=== PATIENT | male | born 1940 | race Caucasian/White ===

== ENCOUNTER → 2017-01-11 | Outpatient (CLI) | payer MEDICARE, BC ==
[~2017-01-11] MED LIST: AMIO200T42 PO; ASPI-496 PO; ASPI-621 PO; CARB15DR5 EACHEYE; CARV6.2512 PO; CHOL20003 PO; CHOL4PAC3 PO; CITA20TA9 PO; CLIN-60 PO; COLC0.6T37 PO; DOCU-30 PO; FEBU40TA PO; FURO-92 PO; HYDR-3307 PO; LISI-466 PO; LUTE20TA PO; MULT-658 PO; PANT40TA5 PO; POTA20TA14 PO; RIVA20TA PO; ROSU10TA PO; SPIR25TA PO; WARF5TAB7 PO-COUM
== END | disposition home or self-care (01) ==
LOC: WOUND 08:00
PROVIDERS: ATTEND Internal Medicine Cardiovascular Disease
DX: I83.891 Varicose veins of right lower extremity with other complications (principal); I87.2 Venous insufficiency (chronic) (peripheral); I10 Essential (primary) hypertension; E78.5 Hyperlipidemia, unspecified; M10.9 Gout, unspecified; F32.9 Major depressive disorder, single episode, unspecified; Z87.891 Personal history of nicotine dependence; Z72.89 Other problems related to lifestyle
CPT/HCPCS: 36475

== ENCOUNTER → 2018-04-10 | Outpatient (CLI) | payer MEDICARE, BC ==
[~2018-04-10] MED LIST changes: +CHOL2000 PO; -CHOL20003 PO; -CLIN-60 PO; +CLIN150C14 PO; +DOCU-131 PO; -DOCU-30 PO; +WARF-36 PO-COUM; -WARF5TAB7 PO-COUM
== END | disposition home or self-care (01) ==
LOC: CFH 08:17
PROVIDERS: ATTEND Urology
DX: N28.1 Cyst of kidney, acquired (principal); N18.9 Chronic kidney disease, unspecified
CPT/HCPCS: 76770

== ENCOUNTER → 2018-08-15 | Outpatient (CLI) | payer MEDICARE, BC ==
[~2018-08-15] MED LIST changes: +GADOBUTROL 7.5 MMOL/7.5 ML PFS ONE
== END | disposition home or self-care (01) ==
LOC: CFH 09:43
PROVIDERS: ATTEND Specialist
DX: D36.10 Benign neoplasm of peripheral nerves and autonomic nervous system, unspecified (principal); G31.9 Degenerative disease of nervous system, unspecified; I63.9 Cerebral infarction, unspecified
CPT/HCPCS: 70553; 82565; A9585

== ENCOUNTER 2018-11-03 17:46 | Inpatient (IN) | payer MEDICARE, BC ==
[~2018-11-03] VITALS: Ht 177.8 cm; Wt 92.4 kg
[~2018-11-03 17:46] MED LIST changes: -ASPI-621 PO; +ASPI81TA45 PO; -GADOBUTROL 7.5 MMOL/7.5 ML PFS ONE
[2018-11-03] MEDS ORDERED: ASPIRIN 81 MG TABLET CHEW PO ONE ×3 (18:00→20:00)
[2018-11-03] MEDS ORDERED: ASPIRIN 81 MG TABLET CHEW ONE ×2 (18:06→19:48)
[2018-11-03 18:36] LABS: BASOPHILS # (AUTO) 0.04 x10^3/uL (0-0.1); BASOPHILS % (AUTO) 1 % (0-1); EOSINOPHILS # (AUTO) 0.32 x10^3/uL (0-0.4); EOSINOPHILS % (AUTO) 4 % (1-7); LYMPHOCYTES # (AUTO) 2.19 x10^3/uL (1-3.4); LYMPHOCYTES % (AUTO) 26 % (22-44); MD NO; MEAN CORPUSCULAR HEMOGLOBIN 32.2 pg (27.5-34.5); MEAN CORPUSCULAR HGB CONC 33.2 g/dL (33.2-36.2); MEAN CORPUSCULAR VOLUME 96.9 fL (81-97); MONOCYTES % (AUTO) 8 % (2-9); NEUTROPHILS # (AUTO) 5.29 x10^3/uL (1.8-6.8); NEUTROPHILS % (AUTO) 62 % (42-75); PLATELET COUNT 194 x10^3/uL (130-400); RED CELL DISTRIBUTION WIDTH 16.3 % (9.4-14.8)
--- NOTE | 2018-11-03 18:41 | NUR ---
PT. IS A & O X 4 WITH C/O 2 WEEK HX OF URI SYMPTOMS AND SOB WITH ACTIVITY. PT. HAS THE CP MONITOR IN PLACE. LABS WERE DRAWN AND SENT. PT.'S LUNGS ARE CTA. SIDERAILS ARE UP X [address] WITH THE CALL LIGHT IN PLACE. PT.'S IS AT THE BEDSIDE. PT. WAS MEDICATED ORDERED. VSS.
[2018-11-03 18:44] LABS: ALBUMIN 4.1 g/dL (3.4-5.0); ANION GAP 7 mmol/L (5-15); CALCIUM 8.5 mg/dL (8.5-10.1); CHLORIDE 111 mmol/L (98-107)
[2018-11-03 18:50] LABS: ALANINE AMINOTRANSFERASE 47 U/L (12-78); ALKALINE PHOSPHATASE 82 U/L (45-117); CREATININE 2.01 mg/dL (0.7-1.3); TOTAL PROTEIN 7.7 g/dL (6.4-8.2)
[2018-11-03 18:52] LABS: TROPONIN I 0.147 ng/mL (0.000-0.045)
[2018-11-03] MEDS ORDERED: FUROSEMIDE 40 MG/4 ML IV ONE (19:00)
[2018-11-03] MEDS ORDERED: POTA25TA4 PO (19:26)
[2018-11-03] MEDS ORDERED: TIOT18CA INH (19:29)
[2018-11-03] MEDS ORDERED: LISI-170 PO (19:29)
[2018-11-03] MEDS ORDERED: FUROSEMIDE 40 MG/4 ML ONE (19:48)
--- NOTE | 2018-11-03 19:56 | NUR ---
DR. GARNETT IS AT THE BEDSIDE DISCUSSING THE PLAN OF CARE. MEDS GIVEN ORDERED. PT. REMAINS MONITORED. VSS. CALL LIGHT IN PLACE, SR ARE UP X 2.
[2018-11-03] MEDS ORDERED: ACETAMINOPHEN 325 MG TABLET PO PRN (20:30)
[2018-11-03] MEDS ORDERED: hydrALAzine 20 MG/ML, 1ML IVPush PRN (20:30)
[2018-11-03] MEDS ORDERED: GUAIFENESIN/DM 200-20MG, 10ML UDC PO PRN (20:30)
[2018-11-03] MEDS ORDERED: ONDANSETRON ODT 4 MG PO PRN (20:30)
[2018-11-03] MEDS ORDERED: ONDANSETRON 2MG/ML, 2ML IVPush PRN (20:30)
--- NOTE | 2018-11-03 20:52 | NUR ---
PT. REPORT WAS CALLED TO [facility]. PT. IS READY FOR TRANSPORT.
[2018-11-03 21:23] VITALS: BP 129/78
[2018-11-03] MEDS: ENOXAPARIN 40 MG/0.4 ML SQ SCH (21:32)
[2018-11-03] MEDS: SODIUM CHLORIDE FLUSH 10ML SYR IVF SCH (21:32)
[2018-11-03] MEDS: CARVEDILOL 6.25 MG TABLET PO SCH (21:33)
[2018-11-03 23:30] LABS: TROPONIN I 0.137 ng/mL (0.000-0.045)
[2018-11-03 23:53] VITALS: BP 129/78
[2018-11-04 02:05] VITALS: BP 132/72
[2018-11-04 05:14] LABS: CALCIUM 8.7 mg/dL (8.5-10.1); CHLORIDE 113 mmol/L (98-107)
[2018-11-04 05:23] LABS: ANION GAP 8 mmol/L (5-15); CREATININE 1.85 mg/dL (0.7-1.3); TROPONIN I 0.128 ng/mL (0.000-0.045)
[2018-11-04] MEDS ORDERED: REGADENOSON 0.4 MG/5 ML SYRINGE ONE (08:35)
[2018-11-04 08:54] VITALS: BP 152/77
[2018-11-04] MEDS ORDERED: IPRATROPIUM 0.5 MG/2.5 ML INHA HHN SCH (09:00)
[2018-11-04] MEDS ORDERED: K-LYTE 25 MEQ TABLET.EFF PO SCH (09:00)
[2018-11-04] MEDS ORDERED: IPRATROPIUM 0.5 MG/2.5 ML INHA HHN PRN (11:30)
[2018-11-04] MEDS: CARVEDILOL 6.25 MG TABLET PO SCH ×2 (12:05→21:08)
[2018-11-04] MEDS: ATORVASTATIN 10 MG TABLET PO SCH (12:05)
[2018-11-04] MEDS: ASPIRIN 81 MG TABLET EC PO SCH (12:05)
[2018-11-04] MEDS: LISINOPRIL 20 MG TABLET PO SCH (12:05)
[2018-11-04] MEDS: CITALOPRAM 20 MG TABLET PO SCH (12:05)
[2018-11-04] MEDS: FUROSEMIDE 20 MG TABLET PO SCH (12:05)
[2018-11-04] MEDS: MULTIVITAMIN 1 TABLET PO SCH (12:06)
[2018-11-04] MEDS: CHOLECALCIFEROL 1,000 UNIT TABLET PO SCH (12:06)
[2018-11-04] MEDS: POTASSIUM CHLORIDE 10 MEQ TABLET.ER PO SCH (12:44)
[2018-11-04] MEDS: SODIUM CHLORIDE FLUSH 10ML SYR IVF SCH ×2 (12:44→21:09)
[2018-11-04 15:41] VITALS: BP 128/77
[2018-11-04 18:58] VITALS: BP 140/74
[2018-11-04 21:01] VITALS: BP 120/62
[2018-11-04] MEDS: ENOXAPARIN 40 MG/0.4 ML SQ SCH (21:09)
[2018-11-05 01:02] VITALS: BP 148/72
[2018-11-05 01:14] VITALS: BP 134/71
[2018-11-05 07:18] VITALS: BP 135/72
[2018-11-05] MEDS: LISINOPRIL 20 MG TABLET PO SCH (08:55)
[2018-11-05] MEDS: ASPIRIN 81 MG TABLET EC PO SCH (08:55)
[2018-11-05] MEDS: CHOLECALCIFEROL 1,000 UNIT TABLET PO SCH (08:56)
[2018-11-05] MEDS: POTASSIUM CHLORIDE 10 MEQ TABLET.ER PO SCH (08:56)
[2018-11-05] MEDS: FUROSEMIDE 20 MG TABLET PO SCH (08:56)
[2018-11-05] MEDS: MULTIVITAMIN 1 TABLET PO SCH (08:57)
[2018-11-05] MEDS: CITALOPRAM 20 MG TABLET PO SCH (08:57)
[2018-11-05] MEDS: ATORVASTATIN 10 MG TABLET PO SCH (08:57)
[2018-11-05] MEDS: CARVEDILOL 6.25 MG TABLET PO SCH ×2 (08:57→20:30)
[2018-11-05] MEDS: SODIUM CHLORIDE FLUSH 10ML SYR IVF SCH ×2 (08:58→20:30)
[2018-11-05 13:22] VITALS: BP 128/61
[2018-11-05] MEDS: FUROSEMIDE 40 MG/4 ML IV SCH (15:43)
[2018-11-05] MEDS: ENOXAPARIN 40 MG/0.4 ML SQ SCH (20:29)
[2018-11-05 20:34] VITALS: BP 119/57
[2018-11-06 00:51] VITALS: BP 121/78
[2018-11-06 05:45] LABS: ALBUMIN 3.6 g/dL (3.4-5.0); ANION GAP 8 mmol/L (5-15); CHLORIDE 107 mmol/L (98-107); CREATININE 1.62 mg/dL (0.7-1.3)
[2018-11-06 06:45] VITALS: BP 114/81
[2018-11-06] MEDS: ATORVASTATIN 10 MG TABLET PO SCH (09:02)
[2018-11-06] MEDS: ASPIRIN 81 MG TABLET EC PO SCH (09:02)
[2018-11-06] MEDS: MULTIVITAMIN 1 TABLET PO SCH (09:02)
[2018-11-06] MEDS: CITALOPRAM 20 MG TABLET PO SCH (09:02)
[2018-11-06] MEDS: LISINOPRIL 20 MG TABLET PO SCH (09:02)
[2018-11-06] MEDS: POTASSIUM CHLORIDE 10 MEQ TABLET.ER PO SCH (09:02)
[2018-11-06] MEDS: FUROSEMIDE 40 MG/4 ML IV SCH (09:03)
[2018-11-06] MEDS: CARVEDILOL 6.25 MG TABLET PO SCH ×2 (09:03→21:52)
[2018-11-06] MEDS: SODIUM CHLORIDE FLUSH 10ML SYR IVF SCH ×2 (09:03→21:00)
[2018-11-06] MEDS: CHOLECALCIFEROL 1,000 UNIT TABLET PO SCH (09:03)
[2018-11-06] MEDS ORDERED: MAGNESIUM SULFATE PMX 2GM/50ML 50 ML IV ONE (09:30)
[2018-11-06 13:01] VITALS: BP 118/50
[2018-11-06 21:15] VITALS: BP 111/62
[2018-11-06] MEDS: ENOXAPARIN 40 MG/0.4 ML SQ SCH (21:46)
[2018-11-07 00:38] VITALS: BP 119/71
[2018-11-07 06:59] VITALS: BP 117/63
[2018-11-07] MEDS ORDERED: SODIUM BICARB 8.4%,50ML SYR. 150 MEQ in DEXTROSE 5% 1,000 ML IV SCH (07:48)
[2018-11-07] MEDS: CHOLECALCIFEROL 1,000 UNIT TABLET PO SCH (08:17)
[2018-11-07] MEDS: ATORVASTATIN 10 MG TABLET PO SCH (08:17)
[2018-11-07] MEDS: CARVEDILOL 6.25 MG TABLET PO SCH ×2 (08:18→20:41)
[2018-11-07] MEDS: LISINOPRIL 20 MG TABLET PO SCH (08:18)
[2018-11-07] MEDS: FUROSEMIDE 40 MG/4 ML IV SCH (08:18)
[2018-11-07] MEDS: POTASSIUM CHLORIDE 10 MEQ TABLET.ER PO SCH (08:18)
[2018-11-07] MEDS: MULTIVITAMIN 1 TABLET PO SCH (08:18)
[2018-11-07] MEDS: CITALOPRAM 20 MG TABLET PO SCH (08:18)
[2018-11-07] MEDS: SODIUM CHLORIDE FLUSH 10ML SYR IVF SCH ×2 (08:18→20:40)
[2018-11-07] MEDS: ASPIRIN 81 MG TABLET EC PO SCH (08:18)
[2018-11-07] MEDS ORDERED: FENTANYL PF 100 MCG/2ML ONE (12:38)
[2018-11-07] MEDS ORDERED: HEPARIN 1,000 UNITS/ML, 10ML ONE (12:39)
[2018-11-07] MEDS ORDERED: VERAPAMIL 2.5 MG/ML, 2ML ONE (12:39)
[2018-11-07] MEDS ORDERED: MIDAZOLAM 1 MG/ML, 2ML ONE (12:39)
[2018-11-07] MEDS ORDERED: LIDOCAINE 2%, 20ML ONE (12:39)
[2018-11-07 14:25] VITALS: BP 116/65
[2018-11-07 19:00] VITALS: BP 133/77
[2018-11-07 19:04] VITALS: BP 97/62
[2018-11-07 20:38] VITALS: BP 120/77
[2018-11-07] MEDS: ENOXAPARIN 40 MG/0.4 ML SQ SCH (20:40)
[2018-11-08 04:44] VITALS: BP 125/78
[2018-11-08 08:00] VITALS: BP 105/64
[2018-11-08] MEDS: FUROSEMIDE 40 MG/4 ML IV SCH (09:24)
[2018-11-08] MEDS: POTASSIUM CHLORIDE 10 MEQ TABLET.ER PO SCH (09:24)
[2018-11-08] MEDS: MULTIVITAMIN 1 TABLET PO SCH (09:25)
[2018-11-08] MEDS: ASPIRIN 81 MG TABLET EC PO SCH (09:25)
[2018-11-08] MEDS: CHOLECALCIFEROL 1,000 UNIT TABLET PO SCH (09:25)
[2018-11-08] MEDS: CARVEDILOL 6.25 MG TABLET PO SCH ×2 (09:25→20:55)
[2018-11-08] MEDS: SODIUM CHLORIDE FLUSH 10ML SYR IVF SCH ×2 (09:25→20:57)
[2018-11-08] MEDS: CITALOPRAM 20 MG TABLET PO SCH (09:25)
[2018-11-08] MEDS: LISINOPRIL 20 MG TABLET PO SCH (09:26)
[2018-11-08] MEDS: APIXABAN 2.5 MG TABLET PO SCH ×2 (13:12→20:55)
[2018-11-08 15:56] VITALS: BP 125/75
[2018-11-08 20:54] VITALS: BP 124/74
[2018-11-08] MEDS ORDERED: ATORVASTATIN 10 MG TABLET PO SCH (21:00)
[2018-11-09 02:23] VITALS: BP 115/75
[2018-11-09 06:11] LABS: ANION GAP 9 mmol/L (5-15); CALCIUM 9.5 mg/dL (8.5-10.1); CHLORIDE 103 mmol/L (98-107)
[2018-11-09 06:27] LABS: CREATININE 1.63 mg/dL (0.7-1.3)
[2018-11-09 07:17] VITALS: BP 125/63
[2018-11-09] MEDS ORDERED: FUROSEMIDE 80 MG TABLET PO SCH (09:00)
[2018-11-09] MEDS: CHOLECALCIFEROL 1,000 UNIT TABLET PO SCH (09:35)
[2018-11-09] MEDS: LISINOPRIL 20 MG TABLET PO SCH (09:36)
[2018-11-09] MEDS: APIXABAN 2.5 MG TABLET PO SCH (09:36)
[2018-11-09] MEDS: CITALOPRAM 20 MG TABLET PO SCH (09:36)
[2018-11-09] MEDS: POTASSIUM CHLORIDE 10 MEQ TABLET.ER PO SCH (09:36)
[2018-11-09] MEDS: MULTIVITAMIN 1 TABLET PO SCH (09:36)
[2018-11-09] MEDS: CARVEDILOL 6.25 MG TABLET PO SCH (09:36)
[2018-11-09] MEDS: SODIUM CHLORIDE FLUSH 10ML SYR IVF SCH (09:37)
[2018-11-09] MEDS ORDERED: APIX2.5T PO (10:41)
[2018-11-09] MEDS ORDERED: FURO80TA3 PO (10:41)
== END 2018-11-09 13:20 | disposition home or self-care (01) | DRG 286 ==
LOC: ED 19:38 → SUATTDRO 20:17 → EDIP 20:33 → 5SO 20:56 → DCLOUNGE 11-09 12:57
PROVIDERS: ADMIT Hospitalist; ATTEND Hospitalist
PROC: 5A09357 Assistance with Respiratory Ventilation, Less than 24 Consecutive Hours, Continuous Positive Airway Pressure (ICD-10-PCS; 2018-11-05)
PROC: 4A023N8 Measurement of Cardiac Sampling and Pressure, Bilateral, Percutaneous Approach (ICD-10-PCS; principal; 2018-11-07)
PROC: B2111ZZ Fluoroscopy of Multiple Coronary Arteries using Low Osmolar Contrast (ICD-10-PCS; 2018-11-07)
PROC: B246ZZ4 Ultrasonography of Right and Left Heart, Transesophageal (ICD-10-PCS; 2018-11-07)
DX: T82.857A Stenosis of other cardiac prosthetic devices, implants and grafts, initial encounter (principal); I50.43 Acute on chronic combined systolic (congestive) and diastolic (congestive) heart failure; I13.0 Hypertensive heart and chronic kidney disease with heart failure and stage 1 through stage 4 chronic kidney disease, or unspecified chronic kidney disease; I45.2 Bifascicular block; D63.8 Anemia in other chronic diseases classified elsewhere; E78.5 Hyperlipidemia, unspecified; G47.30 Sleep apnea, unspecified; H35.30 Unspecified macular degeneration; I51.3 Intracardiac thrombosis, not elsewhere classified; I25.10 Atherosclerotic heart disease of native coronary artery without angina pectoris; I27.20 Pulmonary hypertension, unspecified; I25.5 Ischemic cardiomyopathy; N18.3 Chronic kidney disease, stage 3 (moderate); Y83.1 Surgical operation with implant of artificial internal device as the cause of abnormal reaction of the patient, or of later complication, without mention of misadventure at the time of the procedure; Z82.49 Family history of ischemic heart disease and other diseases of the circulatory system; Z87.891 Personal history of nicotine dependence; I25.2 Old myocardial infarction; Z95.1 Presence of aortocoronary bypass graft; Z95.2 Presence of prosthetic heart valve
CPT/HCPCS: 36415; 78452; 80048; 80053; 82040; 83735; 83880; 84100; 84443; 84484; 85025; 93005; 93017; 93306; 93312; 93321; 93325; 93453; 96374; 99156; 99157; C1769; C1894; G0378; J1644; J1650; J1940; J2250; J2785; J3010; J3490; J7070; A9502; C9898; J3475; Q9967

== ENCOUNTER 2019-01-04 15:10 | Inpatient (IN) | payer MEDICARE, BC ==
[~2019-01-04] VITALS: Ht 177.8 cm; Wt 104.6 kg
[~2019-01-04 15:10] MED LIST changes: +APIX2.5T PO; +FURO80TA3 PO; +LISI-170 PO; +POTA25TA4 PO; -ROSU10TA PO; +ROSU10TA2 PO; +TIOT18CA INH
[2019-01-04] MEDS ORDERED: FENTANYL PF 100 MCG/2ML ONE (15:28)
[2019-01-04] MEDS ORDERED: MIDAZOLAM 1 MG/ML, 5ML ONE (15:28)
[2019-01-04] MEDS ORDERED: LIDOCAINE 1%, 20ML ONE (15:28)
[2019-01-04] MEDS ORDERED: SODIUM CHLORIDE FLUSH 10ML SYR IVF ONE (15:30)
--- NOTE | 2019-01-04 15:35 | NUR ---
78 YR OLD MALE ARRIVED VIA EMS, PER REPORT PT HAD BEEN AT EYE FOR DEEP DIALATION, CAME HOME, LAID DOWN, WANTED HIS ZION RIVERA TO WAKE HIM UP IN AN HOUR, SHE FOUND HIM "NOT LOOKING RIGHT", MOUTH OPEN, HEAD TIPPED BACK, WOULDNT WAKE UP, THEN TOOK A COUPLE OF BREATHS, 911 CALL. EMS FOUND HIM TO BE IN IDIOVENTRICULAR RHYTHM AT 10. PT ARRIVED WITH PACER PADS IN PLACE RATE OF 70. PT WITH EMESIS, GIVEN ZOFRAN PER VERBAL ORDER FROM DR SALAZAR. PT WITH 18G IN RAC.
--- NOTE | 2019-01-04 15:39 | NUR ---
FLOOR PLAN ADJUSTER RN'S AT BEDSIDE. PT TRANSPORTED TO [facility]AN [facility]
[2019-01-04 15:45] LABS: BASOPHILS # (AUTO) 0.01 x10^3/uL (0-0.1); BASOPHILS % (AUTO) 0 % (0-1); EOSINOPHILS # (AUTO) 0.17 x10^3/uL (0-0.4); EOSINOPHILS % (AUTO) 3 % (1-7); LYMPHOCYTES % (AUTO) 17 % (22-44); MD NO; MEAN CORPUSCULAR HEMOGLOBIN 31.6 pg (27.5-34.5); MEAN CORPUSCULAR HGB CONC 33.3 g/dL (33.2-36.2); MEAN CORPUSCULAR VOLUME 94.9 fL (81-97); MEAN PLATELET VOLUME 8.9 fL (7.4-10.4); MONOCYTES # (AUTO) 0.42 x10^3/uL (0.2-0.8); MONOCYTES % (AUTO) 8 % (2-9); NEUTROPHILS # (AUTO) 3.73 x10^3/uL (1.8-6.8); NEUTROPHILS % (AUTO) 71 % (42-75); PLATELET COUNT 225 x10^3/uL (130-400); RED BLOOD COUNT 3.86 x10^6/uL (4.38-5.82); RED CELL DISTRIBUTION WIDTH 16.7 % (9.4-14.8)
[2019-01-04 15:52] LABS: INTERNATIONAL NORMALIZED RATIO 1.04 (0.93-1.1); PROTHROMBIN TIME 10.9 Seconds (9.6-11.5)
[2019-01-04 15:55] LABS: ALBUMIN 1.9 g/dL (3.4-5.0); ANION GAP 12 mmol/L (5-15); CALCIUM 7.2 mg/dL (8.5-10.1); CHLORIDE 108 mmol/L (98-107); CREATININE 5.08 mg/dL (0.7-1.3)
[2019-01-04] MEDS ORDERED: ONDANSETRON 2MG/ML, 2ML IVPush ONE (16:00)
[2019-01-04] MEDS ORDERED: CALCIUM CHLORIDE 13.6 MEQ/10 ML ONE (16:08)
[2019-01-04] MEDS ORDERED: ACETAMINOPHEN 325 MG TABLET PO PRN (16:30)
[2019-01-04] MEDS ORDERED: BISACODYL 10 MG SUPP PR PRN (16:30)
[2019-01-04] MEDS ORDERED: POLYETHYLENE GLYCOL 17 GM PACKET PO PRN (16:30)
[2019-01-04] MEDS ORDERED: hydrALAzine 20 MG/ML, 1ML IVPush PRN (16:30)
[2019-01-04] MEDS ORDERED: morphine SULFATE 10 MG/ML, 1ML IVPush PRN (16:30)
[2019-01-04] MEDS ORDERED: CALCIUM GLUCONATE 4.6 MEQ in SODIUM CHLORIDE 0.9% 50 ML IV ONE (16:30)
[2019-01-04] MEDS ORDERED: SODIUM POLYSTYRENE SULFONATE ORAL SUSP PO ONE (16:30)
[2019-01-04] MEDS ORDERED: INSULIN REGULAR 100 UNITS/ML, 3ML VIAL IVPush ONE (16:30)
[2019-01-04 16:35] LABS: TROPONIN I 0.054 ng/mL (0.000-0.045)
[2019-01-04] MEDS: ONDANSETRON 2MG/ML, 2ML IVPush PRN (16:38)
[2019-01-04] MEDS ORDERED: PROMETHAZINE 25 MG/ML, 1ML IM PRN (17:30)
[2019-01-04] MEDS: SODIUM CHLORIDE 0.9% 1,000 ML IV SCH (18:22)
[2019-01-04 22:20] LABS: TROPONIN I 0.281 ng/mL (0.000-0.045)
[2019-01-05 00:03] LABS: ANION GAP 11 mmol/L (5-15); CALCIUM 8.2 mg/dL (8.5-10.1); CHLORIDE 104 mmol/L (98-107); CREATININE 2.75 mg/dL (0.7-1.3)
[2019-01-05] MEDS ORDERED: APIX5TAB PO (01:11)
[2019-01-05] MEDS ORDERED: SPIR25TA PO (01:11)
[2019-01-05] MEDS ORDERED: FURO40TA6 PO (01:11)
[2019-01-05] MEDS: SODIUM CHLORIDE 0.9% 1,000 ML IV SCH ×3 (02:36→18:29)
[2019-01-05 04:00] VITALS: BP 117/58
[2019-01-05 05:24] LABS: ALBUMIN 1.5 g/dL (3.4-5.0); ANION GAP 9 mmol/L (5-15); CALCIUM 7.6 mg/dL (8.5-10.1); CHLORIDE 107 mmol/L (98-107)
[2019-01-05 05:28] LABS: ALANINE AMINOTRANSFERASE 26 U/L (12-78); ALKALINE PHOSPHATASE 57 U/L (45-117); BILIRUBIN,TOTAL 0.4 mg/dL (0.2-1.0); TOTAL PROTEIN 5.1 g/dL (6.4-8.2)
[2019-01-05 05:30] LABS: BASOPHILS # (AUTO) 0.01 x10^3/uL (0-0.1); BASOPHILS % (AUTO) 0 % (0-1); EOSINOPHILS # (AUTO) 0.05 x10^3/uL (0-0.4); EOSINOPHILS % (AUTO) 1 % (1-7); LYMPHOCYTES # (AUTO) 0.82 x10^3/uL (1-3.4); LYMPHOCYTES % (AUTO) 17 % (22-44); MD NO; MEAN CORPUSCULAR HEMOGLOBIN 31.8 pg (27.5-34.5); MEAN CORPUSCULAR HGB CONC 33.3 g/dL (33.2-36.2); MEAN CORPUSCULAR VOLUME 95.3 fL (81-97); MEAN PLATELET VOLUME 9.1 fL (7.4-10.4); MONOCYTES # (AUTO) 0.56 x10^3/uL (0.2-0.8); MONOCYTES % (AUTO) 12 % (2-9); NEUTROPHILS # (AUTO) 3.42 x10^3/uL (1.8-6.8); NEUTROPHILS % (AUTO) 70 % (42-75); PLATELET COUNT 179 x10^3/uL (130-400); RED BLOOD COUNT 3.63 x10^6/uL (4.38-5.82); RED CELL DISTRIBUTION WIDTH 17.3 % (9.4-14.8)
[2019-01-05] MEDS: SENNA/DOCUSATE TABLET PO SCH (09:00)
[2019-01-05] MEDS ORDERED: HEPARIN 5,000 UNITS/ML, 1ML IV ONE (10:30)
[2019-01-05] MEDS ORDERED: HEPARIN 25,000 UNITS/500ML PMX 500 ML IV PRN (10:30)
[2019-01-05] MEDS: HEPARIN 5,000 UNITS/ML, 1ML IV PRN (20:46)
[2019-01-06] MEDS: SODIUM CHLORIDE 0.9% 1,000 ML IV SCH ×3 (01:16→21:16)
[2019-01-06] MEDS: HEPARIN 5,000 UNITS/ML, 1ML IV PRN (04:14)
[2019-01-06 05:00] VITALS: BP 133/50
[2019-01-06] MEDS: SENNA/DOCUSATE TABLET PO SCH (08:56)
[2019-01-06] MEDS: ERGOCALCIFEROL 50,000 UNIT CAPSULE PO SCH (08:57)
[2019-01-06] MEDS: COLCHICINE 0.6 MG TABLET PO SCH (10:00)
[2019-01-06] MEDS: ASPIRIN 81 MG TABLET EC PO SCH (10:33)
[2019-01-06] MEDS: FEBUXOSTAT 40 MG TABLET PO SCH (10:33)
[2019-01-06] MEDS: CITALOPRAM 20 MG TABLET PO SCH (10:33)
[2019-01-06] MEDS: APIXABAN 5 MG TABLET PO SCH ×2 (10:33→21:15)
[2019-01-06 20:50] VITALS: BP 160/71
[2019-01-06] MEDS: ATORVASTATIN 10 MG TABLET PO SCH (21:15)
[2019-01-06 21:24] VITALS: BP 135/69
[2019-01-07 00:51] VITALS: BP 127/69
[2019-01-07 04:34] VITALS: BP 147/73
[2019-01-07] MEDS: SODIUM CHLORIDE 0.9% 1,000 ML IV SCH ×3 (04:55→22:48)
[2019-01-07 05:33] LABS: BASOPHILS # (AUTO) 0.02 x10^3/uL (0-0.1); BASOPHILS % (AUTO) 0 % (0-1); EOSINOPHILS # (AUTO) 0.33 x10^3/uL (0-0.4); EOSINOPHILS % (AUTO) 8 % (1-7); LYMPHOCYTES # (AUTO) 0.83 x10^3/uL (1-3.4); LYMPHOCYTES % (AUTO) 19 % (22-44); MD NO; MEAN CORPUSCULAR HEMOGLOBIN 32.6 pg (27.5-34.5); MEAN CORPUSCULAR VOLUME 95.9 fL (81-97); MONOCYTES # (AUTO) 0.61 x10^3/uL (0.2-0.8); MONOCYTES % (AUTO) 14 % (2-9); NEUTROPHILS # (AUTO) 2.57 x10^3/uL (1.8-6.8); NEUTROPHILS % (AUTO) 59 % (42-75); PLATELET COUNT 127 x10^3/uL (130-400); RED BLOOD COUNT 3.29 x10^6/uL (4.38-5.82); RED CELL DISTRIBUTION WIDTH 16.7 % (9.4-14.8)
[2019-01-07 05:43] LABS: ALBUMIN 1.3 g/dL (3.4-5.0); ANION GAP 5 mmol/L (5-15); CALCIUM 6.8 mg/dL (8.5-10.1); CHLORIDE 106 mmol/L (98-107)
[2019-01-07 05:44] LABS: CREATININE 2.55 mg/dL (0.7-1.3)
[2019-01-07 08:05] VITALS: BP 129/81
[2019-01-07] MEDS: SENNA/DOCUSATE TABLET PO SCH (08:08)
[2019-01-07] MEDS: ASPIRIN 81 MG TABLET EC PO SCH (08:09)
[2019-01-07] MEDS: APIXABAN 5 MG TABLET PO SCH ×2 (08:09→20:46)
[2019-01-07] MEDS: FEBUXOSTAT 40 MG TABLET PO SCH (08:09)
[2019-01-07] MEDS: CITALOPRAM 20 MG TABLET PO SCH (08:09)
[2019-01-07] MEDS: LISINOPRIL 20 MG TABLET PO SCH (08:10)
[2019-01-07 12:24] VITALS: BP 151/80
[2019-01-07 19:00] VITALS: BP 151/76
[2019-01-07] MEDS: ATORVASTATIN 10 MG TABLET PO SCH (20:46)
[2019-01-07 20:59] VITALS: BP 154/76
[2019-01-08 01:49] VITALS: BP 157/73
[2019-01-08 02:00] VITALS: BP 113/73
[2019-01-08 04:03] VITALS: BP 131/75
[2019-01-08 05:25] LABS: ANION GAP 5 mmol/L (5-15); CALCIUM 6.6 mg/dL (8.5-10.1); CHLORIDE 108 mmol/L (98-107); CREATININE 3.14 mg/dL (0.7-1.3)
[2019-01-08 05:28] LABS: BASOPHILS # (AUTO) 0.01 x10^3/uL (0-0.1); BASOPHILS % (AUTO) 0 % (0-1); EOSINOPHILS # (AUTO) 0.31 x10^3/uL (0-0.4); EOSINOPHILS % (AUTO) 5 % (1-7); LYMPHOCYTES # (AUTO) 0.84 x10^3/uL (1-3.4); LYMPHOCYTES % (AUTO) 13 % (22-44); MD NO; MEAN CORPUSCULAR HEMOGLOBIN 31.8 pg (27.5-34.5); MEAN CORPUSCULAR HGB CONC 33.2 g/dL (33.2-36.2); MEAN CORPUSCULAR VOLUME 95.9 fL (81-97); MEAN PLATELET VOLUME 8.9 fL (7.4-10.4); MONOCYTES # (AUTO) 0.69 x10^3/uL (0.2-0.8); MONOCYTES % (AUTO) 11 % (2-9); NEUTROPHILS % (AUTO) 71 % (42-75); PLATELET COUNT 129 x10^3/uL (130-400); RED BLOOD COUNT 3.44 x10^6/uL (4.38-5.82); RED CELL DISTRIBUTION WIDTH 16.3 % (9.4-14.8)
[2019-01-08 08:02] VITALS: BP 147/74
[2019-01-08] MEDS: SODIUM CHLORIDE 0.9% 1,000 ML IV SCH ×3 (08:55→23:47)
[2019-01-08] MEDS: SENNA/DOCUSATE TABLET PO SCH (09:00)
[2019-01-08] MEDS: FEBUXOSTAT 40 MG TABLET PO SCH (10:55)
[2019-01-08] MEDS: APIXABAN 5 MG TABLET PO SCH ×2 (10:55→20:46)
[2019-01-08] MEDS: ASPIRIN 81 MG TABLET EC PO SCH (10:55)
[2019-01-08] MEDS: LISINOPRIL 20 MG TABLET PO SCH (10:55)
[2019-01-08] MEDS: CITALOPRAM 20 MG TABLET PO SCH (10:56)
[2019-01-08 14:12] VITALS: BP 135/76
[2019-01-08] MEDS: CARVEDILOL 6.25 MG TABLET PO SCH (18:32)
[2019-01-08 19:40] VITALS: BP 129/86
[2019-01-08] MEDS: ATORVASTATIN 10 MG TABLET PO SCH (20:46)
[2019-01-09 02:36] VITALS: BP 127/75
[2019-01-09] MEDS: CARVEDILOL 6.25 MG TABLET PO SCH ×2 (05:51→17:59)
[2019-01-09 07:48] VITALS: BP 148/92
[2019-01-09] MEDS: SODIUM CHLORIDE 0.9% 1,000 ML IV SCH ×3 (08:03→23:00)
[2019-01-09] MEDS: FEBUXOSTAT 40 MG TABLET PO SCH (08:04)
[2019-01-09] MEDS: APIXABAN 5 MG TABLET PO SCH ×2 (08:04→20:06)
[2019-01-09] MEDS: CITALOPRAM 20 MG TABLET PO SCH (08:05)
[2019-01-09] MEDS: LISINOPRIL 20 MG TABLET PO SCH (08:05)
[2019-01-09] MEDS: ASPIRIN 81 MG TABLET EC PO SCH (08:05)
[2019-01-09] MEDS: SENNA/DOCUSATE TABLET PO SCH (08:06)
[2019-01-09] MEDS: COLCHICINE 0.6 MG TABLET PO SCH (09:00)
[2019-01-09 12:17] LABS: ALBUMIN 1.3 g/dL (3.4-5.0); ANION GAP 10 mmol/L (5-15); CALCIUM 6.7 mg/dL (8.5-10.1); CHLORIDE 107 mmol/L (98-107)
[2019-01-09 12:22] LABS: ALANINE AMINOTRANSFERASE 34 U/L (12-78); ALKALINE PHOSPHATASE 81 U/L (45-117); BILIRUBIN,TOTAL 0.3 mg/dL (0.2-1.0)
[2019-01-09] MEDS: ONDANSETRON 2MG/ML, 2ML IVPush PRN (13:15)
[2019-01-09 13:40] VITALS: BP 127/75
[2019-01-09 19:24] VITALS: BP 112/66
[2019-01-09] MEDS: ATORVASTATIN 10 MG TABLET PO SCH (20:06)
[2019-01-10 01:51] VITALS: BP 109/65
[2019-01-10] MEDS: CARVEDILOL 6.25 MG TABLET PO SCH ×2 (05:03→17:59)
[2019-01-10 05:55] LABS: BASOPHILS # (AUTO) 0.02 x10^3/uL (0-0.1); BASOPHILS % (AUTO) 0 % (0-1); EOSINOPHILS # (AUTO) 0.32 x10^3/uL (0-0.4); EOSINOPHILS % (AUTO) 7 % (1-7); LYMPHOCYTES # (AUTO) 0.73 x10^3/uL (1-3.4); LYMPHOCYTES % (AUTO) 16 % (22-44); MD NO; MEAN CORPUSCULAR HGB CONC 33.3 g/dL (33.2-36.2); MEAN CORPUSCULAR VOLUME 96.1 fL (81-97); MEAN PLATELET VOLUME 9.1 fL (7.4-10.4); MONOCYTES # (AUTO) 0.46 x10^3/uL (0.2-0.8); MONOCYTES % (AUTO) 10 % (2-9); NEUTROPHILS # (AUTO) 2.99 x10^3/uL (1.8-6.8); NEUTROPHILS % (AUTO) 66 % (42-75); PLATELET COUNT 128 x10^3/uL (130-400); RED CELL DISTRIBUTION WIDTH 16.4 % (9.4-14.8)
[2019-01-10] MEDS: SODIUM CHLORIDE 0.9% 1,000 ML IV SCH (06:58)
[2019-01-10 08:00] VITALS: BP 107/65
[2019-01-10] MEDS: ASPIRIN 81 MG TABLET EC PO SCH (08:22)
[2019-01-10] MEDS: FEBUXOSTAT 40 MG TABLET PO SCH (08:22)
[2019-01-10] MEDS: APIXABAN 5 MG TABLET PO SCH ×2 (08:22→20:55)
[2019-01-10] MEDS: LISINOPRIL 20 MG TABLET PO SCH (08:23)
[2019-01-10] MEDS: CITALOPRAM 20 MG TABLET PO SCH (08:23)
[2019-01-10] MEDS: SENNA/DOCUSATE TABLET PO SCH (08:23)
[2019-01-10 08:51] LABS: ALANINE AMINOTRANSFERASE 31 U/L (12-78); ALBUMIN 1.3 g/dL (3.4-5.0); ANION GAP 8 mmol/L (5-15); CALCIUM 6.5 mg/dL (8.5-10.1); CHLORIDE 111 mmol/L (98-107); CREATININE 3.47 mg/dL (0.7-1.3)
[2019-01-10 08:53] LABS: ALKALINE PHOSPHATASE 80 U/L (45-117); BILIRUBIN,TOTAL 0.4 mg/dL (0.2-1.0); TOTAL PROTEIN 4.9 g/dL (6.4-8.2)
[2019-01-10] MEDS: ALBUMIN HUMAN 5% 250 ML IV SCH ×2 (12:34→21:48)
[2019-01-10 14:03] VITALS: BP 123/74
[2019-01-10] MEDS: FUROSEMIDE 40 MG/4 ML IV SCH ×3 (14:48→23:55)
[2019-01-10 19:36] VITALS: BP 133/77
[2019-01-10] MEDS: ATORVASTATIN 10 MG TABLET PO SCH (20:55)
[2019-01-11 01:47] VITALS: BP 121/74
[2019-01-11] MEDS: CARVEDILOL 6.25 MG TABLET PO SCH ×2 (05:35→17:25)
[2019-01-11 05:58] LABS: BASOPHILS # (AUTO) 0.03 x10^3/uL (0-0.1); BASOPHILS % (AUTO) 1 % (0-1); EOSINOPHILS # (AUTO) 0.42 x10^3/uL (0-0.4); EOSINOPHILS % (AUTO) 8 % (1-7); LYMPHOCYTES # (AUTO) 0.81 x10^3/uL (1-3.4); LYMPHOCYTES % (AUTO) 16 % (22-44); MD NO; MEAN CORPUSCULAR HEMOGLOBIN 32.8 pg (27.5-34.5); MEAN CORPUSCULAR HGB CONC 34.3 g/dL (33.2-36.2); MEAN CORPUSCULAR VOLUME 95.5 fL (81-97); MEAN PLATELET VOLUME 8.7 fL (7.4-10.4); MONOCYTES # (AUTO) 0.54 x10^3/uL (0.2-0.8); MONOCYTES % (AUTO) 10 % (2-9); NEUTROPHILS # (AUTO) 3.44 x10^3/uL (1.8-6.8); NEUTROPHILS % (AUTO) 66 % (42-75); PLATELET COUNT 141 x10^3/uL (130-400); RED BLOOD COUNT 3.27 x10^6/uL (4.38-5.82); RED CELL DISTRIBUTION WIDTH 16.4 % (9.4-14.8)
[2019-01-11 06:11] LABS: ANION GAP 8 mmol/L (5-15); CALCIUM 6.8 mg/dL (8.5-10.1); CHLORIDE 111 mmol/L (98-107); CREATININE 3.11 mg/dL (0.7-1.3)
[2019-01-11 07:53] VITALS: BP 111/58
[2019-01-11] MEDS: FEBUXOSTAT 40 MG TABLET PO SCH (08:11)
[2019-01-11] MEDS: LISINOPRIL 20 MG TABLET PO SCH (08:11)
[2019-01-11] MEDS: ALBUMIN HUMAN 5% 250 ML IV SCH ×2 (08:11→23:10)
[2019-01-11] MEDS: CITALOPRAM 20 MG TABLET PO SCH (08:11)
[2019-01-11] MEDS: APIXABAN 5 MG TABLET PO SCH ×2 (08:11→20:27)
[2019-01-11] MEDS: ASPIRIN 81 MG TABLET EC PO SCH (08:11)
[2019-01-11] MEDS: SENNA/DOCUSATE TABLET PO SCH (08:12)
[2019-01-11] MEDS: FUROSEMIDE 40 MG/4 ML IV SCH (10:15)
[2019-01-11] MEDS: ONDANSETRON 2MG/ML, 2ML IVPush PRN (10:26)
[2019-01-11 14:36] VITALS: BP 119/81
[2019-01-11 19:16] VITALS: BP 133/76
[2019-01-11] MEDS: ATORVASTATIN 10 MG TABLET PO SCH (20:27)
[2019-01-12] MEDS: FUROSEMIDE 40 MG/4 ML IV SCH ×2 (01:14→10:49)
[2019-01-12 02:00] VITALS: BP 124/76
[2019-01-12] MEDS: CARVEDILOL 6.25 MG TABLET PO SCH ×2 (06:00→17:04)
[2019-01-12 07:03] LABS: ALANINE AMINOTRANSFERASE 25 U/L (12-78); ALBUMIN 1.9 g/dL (3.4-5.0); ANION GAP 9 mmol/L (5-15); CHLORIDE 111 mmol/L (98-107)
[2019-01-12 07:06] LABS: ALKALINE PHOSPHATASE 89 U/L (45-117); BILIRUBIN,TOTAL 0.3 mg/dL (0.2-1.0); TOTAL PROTEIN 5.2 g/dL (6.4-8.2)
[2019-01-12 07:33] VITALS: BP 132/80
[2019-01-12] MEDS: ALBUMIN HUMAN 5% 250 ML IV SCH ×2 (08:31→21:20)
[2019-01-12] MEDS: FEBUXOSTAT 40 MG TABLET PO SCH (08:31)
[2019-01-12] MEDS: APIXABAN 5 MG TABLET PO SCH ×2 (08:32→21:18)
[2019-01-12] MEDS: CITALOPRAM 20 MG TABLET PO SCH (08:32)
[2019-01-12] MEDS: SENNA/DOCUSATE TABLET PO SCH (08:32)
[2019-01-12] MEDS: ASPIRIN 81 MG TABLET EC PO SCH (08:32)
[2019-01-12] MEDS: LISINOPRIL 20 MG TABLET PO SCH (08:32)
[2019-01-12] MEDS: METOLAZONE 2.5 MG TABLET PO SCH (11:30)
[2019-01-12] MEDS ORDERED: METOLAZONE 5 MG TABLET ONE (11:54)
[2019-01-12 14:08] VITALS: BP 125/76
[2019-01-12 19:30] VITALS: BP 120/73
[2019-01-12] MEDS: ATORVASTATIN 10 MG TABLET PO SCH (21:18)
[2019-01-13 00:21] VITALS: BP 135/79
[2019-01-13] MEDS: FUROSEMIDE 40 MG/4 ML IV SCH (01:35)
[2019-01-13] MEDS: CARVEDILOL 6.25 MG TABLET PO SCH ×2 (05:56→17:38)
[2019-01-13 07:27] VITALS: BP 151/75
[2019-01-13] MEDS ORDERED: SENNA/DOCUSATE TABLET PO PRN (08:30)
[2019-01-13] MEDS ORDERED: COLCHICINE 0.6 MG TABLET PO PRN (08:30)
[2019-01-13] MEDS ORDERED: ACETAMINOPHEN 325 MG TABLET PO PRN (08:30)
[2019-01-13] MEDS: CALCIUM CARBONATE 500 MG TABLET PO SCH ×2 (09:34→20:49)
[2019-01-13] MEDS: LISINOPRIL 20 MG TABLET PO SCH (09:35)
[2019-01-13] MEDS: CITALOPRAM 20 MG TABLET PO SCH (09:35)
[2019-01-13] MEDS: ERGOCALCIFEROL 50,000 UNIT CAPSULE PO SCH (09:35)
[2019-01-13] MEDS: ISOSORBIDE DINITRATE 10 MG TABLET PO SCH ×3 (09:36→20:53)
[2019-01-13] MEDS: APIXABAN 5 MG TABLET PO SCH ×2 (09:36→20:49)
[2019-01-13] MEDS: ASPIRIN 81 MG TABLET EC PO SCH (09:36)
[2019-01-13] MEDS: FUROSEMIDE 40 MG TABLET PO SCH ×2 (09:38→20:49)
[2019-01-13] MEDS: FEBUXOSTAT 40 MG TABLET PO SCH (09:38)
[2019-01-13] MEDS: METOLAZONE 2.5 MG TABLET PO SCH (09:38)
[2019-01-13] MEDS: LACTOBACILLUS CHEW TABLET PO SCH ×3 (09:39→20:50)
[2019-01-13 15:25] VITALS: BP 138/78
[2019-01-13 17:34] VITALS: BP 142/73
[2019-01-13 18:48] VITALS: BP 153/79
[2019-01-13] MEDS: ATORVASTATIN 10 MG TABLET PO SCH (20:51)
[2019-01-14 03:06] VITALS: BP 124/76
[2019-01-14 05:21] LABS: % IRON SATURATION 41 % (20-55); ALBUMIN 1.7 g/dL (3.4-5.0); ANION GAP 6 mmol/L (5-15); CALCIUM 7.7 mg/dL (8.5-10.1); CHLORIDE 114 mmol/L (98-107); IRON LEVEL 47 mcg/dL (65-175); TOTAL IRON BINDING CAPACITY 114 mcg/dL (250-450)
[2019-01-14] MEDS: CARVEDILOL 6.25 MG TABLET PO SCH ×2 (06:08→18:43)
[2019-01-14 07:21] VITALS: BP 136/73
[2019-01-14] MEDS: FUROSEMIDE 40 MG TABLET PO SCH ×2 (08:56→21:22)
[2019-01-14] MEDS: LACTOBACILLUS CHEW TABLET PO SCH ×3 (08:56→21:23)
[2019-01-14] MEDS: ISOSORBIDE DINITRATE 10 MG TABLET PO SCH ×3 (08:56→21:22)
[2019-01-14] MEDS: ASPIRIN 81 MG TABLET EC PO SCH (08:56)
[2019-01-14] MEDS: APIXABAN 5 MG TABLET PO SCH ×2 (08:56→21:22)
[2019-01-14] MEDS: FEBUXOSTAT 40 MG TABLET PO SCH (08:56)
[2019-01-14] MEDS: CITALOPRAM 20 MG TABLET PO SCH (08:56)
[2019-01-14] MEDS: CALCIUM CARBONATE 500 MG TABLET PO SCH ×2 (08:57→21:22)
[2019-01-14 13:47] VITALS: BP 128/98
[2019-01-14 20:12] VITALS: BP 152/77
[2019-01-14] MEDS: ATORVASTATIN 10 MG TABLET PO SCH (21:23)
[2019-01-15 03:16] VITALS: BP 140/80
[2019-01-15 05:44] LABS: ANION GAP 7 mmol/L (5-15); CALCIUM 7.7 mg/dL (8.5-10.1); CHLORIDE 114 mmol/L (98-107)
[2019-01-15] MEDS: CARVEDILOL 6.25 MG TABLET PO SCH (05:44)
[2019-01-15 07:35] VITALS: BP 128/80
[2019-01-15] MEDS: ASPIRIN 81 MG TABLET EC PO SCH (08:55)
[2019-01-15] MEDS: APIXABAN 5 MG TABLET PO SCH (08:55)
[2019-01-15] MEDS: ISOSORBIDE DINITRATE 10 MG TABLET PO SCH (08:55)
[2019-01-15] MEDS: CITALOPRAM 20 MG TABLET PO SCH (08:55)
[2019-01-15] MEDS: LACTOBACILLUS CHEW TABLET PO SCH (08:55)
[2019-01-15] MEDS: FEBUXOSTAT 40 MG TABLET PO SCH (08:55)
[2019-01-15] MEDS: CALCIUM CARBONATE 500 MG TABLET PO SCH (08:56)
[2019-01-15] MEDS ORDERED: CALC-666 PO (08:57)
[2019-01-15] MEDS ORDERED: ACID1TAB7 PO (08:57)
[2019-01-15] MEDS ORDERED: ISOS10TA2 PO (08:57)
[2019-01-15] MEDS ORDERED: FURO40TA6 PO (08:57)
[2019-01-15] MEDS ORDERED: HYDR-3342 PO (08:57)
[2019-01-15] MEDS ORDERED: FUROSEMIDE 40 MG TABLET PO SCH (09:00)
[2019-01-18] MEDS ORDERED: CALC500T PO (22:06)
[2019-01-18] MEDS ORDERED: ROSU5TAB PO (22:06)
[2019-01-18] MEDS ORDERED: SPIR25TA PO (22:06)
== END 2019-01-15 13:07 | disposition home health service (06) | DRG 70 ==
LOC: ED 15:28 → EDIP 16:02 → CCU 16:34 → 4WST 01-06 16:21 → DCLOUNGE 01-15 12:55
PROVIDERS: ADMIT Internal Medicine; ATTEND Internal Medicine
PROC: 5A1D70Z Performance of Urinary Filtration, Intermittent, Less than 6 Hours Per Day (ICD-10-PCS; principal; 2019-01-04)
PROC: 5A1223Z Performance of Cardiac Pacing, Continuous (ICD-10-PCS; 2019-01-04)
PROC: 02HV33Z Insertion of Infusion Device into Superior Vena Cava, Percutaneous Approach (ICD-10-PCS; 2019-01-04)
PROC: B548ZZA Ultrasonography of Superior Vena Cava, Guidance (ICD-10-PCS; 2019-01-04)
PROC: 5A1D70Z Performance of Urinary Filtration, Intermittent, Less than 6 Hours Per Day (ICD-10-PCS; 2019-01-05)
PROC: 5A1D70Z Performance of Urinary Filtration, Intermittent, Less than 6 Hours Per Day (ICD-10-PCS; 2019-01-06)
PROC: 5A09357 Assistance with Respiratory Ventilation, Less than 24 Consecutive Hours, Continuous Positive Airway Pressure (ICD-10-PCS; 2019-01-13)
PROC: 5A09357 Assistance with Respiratory Ventilation, Less than 24 Consecutive Hours, Continuous Positive Airway Pressure (ICD-10-PCS; 2019-01-14)
DX: G93.41 Metabolic encephalopathy (principal); N17.0 Acute kidney failure with tubular necrosis; I44.2 Atrioventricular block, complete; I42.9 Cardiomyopathy, unspecified; E46 Unspecified protein-calorie malnutrition; E87.1 Hypo-osmolality and hyponatremia; E87.2 Acidosis; I13.0 Hypertensive heart and chronic kidney disease with heart failure and stage 1 through stage 4 chronic kidney disease, or unspecified chronic kidney disease; I50.22 Chronic systolic (congestive) heart failure; I74.9 Embolism and thrombosis of unspecified artery; N25.81 Secondary hyperparathyroidism of renal origin; D63.8 Anemia in other chronic diseases classified elsewhere; E66.9 Obesity, unspecified; E78.5 Hyperlipidemia, unspecified; E83.51 Hypocalcemia; E87.5 Hyperkalemia; F32.9 Major depressive disorder, single episode, unspecified; F41.1 Generalized anxiety disorder; G47.33 Obstructive sleep apnea (adult) (pediatric); I08.1 Rheumatic disorders of both mitral and tricuspid valves; I25.10 Atherosclerotic heart disease of native coronary artery without angina pectoris; I27.20 Pulmonary hypertension, unspecified; I45.10 Unspecified right bundle-branch block; M10.9 Gout, unspecified; N18.3 Chronic kidney disease, stage 3 (moderate); N28.1 Cyst of kidney, acquired; N50.89 Other specified disorders of the male genital organs; I25.2 Old myocardial infarction; Z79.01 Long term (current) use of anticoagulants; Z79.899 Other long term (current) drug therapy; Z82.49 Family history of ischemic heart disease and other diseases of the circulatory system; Z87.891 Personal history of nicotine dependence; Z95.1 Presence of aortocoronary bypass graft; Z95.3 Presence of xenogenic heart valve; Z68.33 Body mass index [BMI] 33.0-33.9, adult
CPT/HCPCS: 33210; 36415; 36556; 71045; 76770; 76937; 77001; 78582; 80047; 80048; 80053; 80069; 81050; 82040; 82306; 82570; 82728; 83540; 83550; 83735; 83970; 84100; 84484; 85025; 85520; 85610; 85730; 86705; 86706; 86803; 87081; 87340; 93005; 93306; 99156; 99291; C1894; G0378; J0610; J1644; J1940; J2250; J2405; J3010; J3490; P9041; A9540; A9558; C1751; C9898; J1642; J2270; J7030; P9045

== ENCOUNTER → 2019-01-18 | Outpatient (CLI) | payer MEDICARE, BC ==
[~2019-01-18] MED LIST changes: +ACID1TAB7 PO; +APIX5TAB PO; +CALC-666 PO; +CALC500T PO; +FURO40TA6 PO; +HYDR-3342 PO; +ISOS10TA2 PO; +ROSU5TAB PO
[2019-01-18 11:12] LABS: ANION GAP 9 mmol/L (5-15); CALCIUM 7.9 mg/dL (8.5-10.1); CHLORIDE 112 mmol/L (98-107); CREATININE 2.75 mg/dL (0.7-1.3)
== END | disposition home or self-care (01) ==
LOC: CFH 09:58
PROVIDERS: ATTEND Internal Medicine
DX: I13.0 Hypertensive heart and chronic kidney disease with heart failure and stage 1 through stage 4 chronic kidney disease, or unspecified chronic kidney disease (principal); N18.3 Chronic kidney disease, stage 3 (moderate); I50.23 Acute on chronic systolic (congestive) heart failure; E78.00 Pure hypercholesterolemia, unspecified; I25.10 Atherosclerotic heart disease of native coronary artery without angina pectoris; I48.0 Paroxysmal atrial fibrillation; Z87.891 Personal history of nicotine dependence
CPT/HCPCS: 36415; 80048